=== PATIENT | male | born 1990 | race African-American/Black ===

== ENCOUNTER 2022-02-22 16:24 | Emergency (ER) | payer MEDICAID ==
[~2022-02-22] VITALS: Ht 177.8 cm; Wt 73.0 kg
[2022-02-22 16:31] VITALS: BP 109/76
== END 2022-02-22 17:42 | disposition left against medical advice (07) ==
LOC: ER 16:24
DX: Z04.89 Encounter for examination and observation for other specified reasons (principal); F99 Mental disorder, not otherwise specified; Z59.00 Homelessness unspecified
CPT/HCPCS: 99283